=== PATIENT | male | born 1965 | race Caucasian/White ===

== ENCOUNTER 2024-06-25 14:20 | Emergency (ER) | payer MEDICAID, SELFPAY ==
[2024-06-25] VITALS (11 sets, daily range): BP systolic 137–180; BP diastolic 95–137; PULSE 86–103; RESP 14–24; TEMP 36.8–36.9; O2SAT 94–100; BMI 26.5
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
--- NOTE | 2024-06-25 15:03 | PD.EDRME ---
Rapid Medical Screening Exam RME Arrival date/time: 06/25/24 14:20 This is a 58-year-old male who presents to the emergency department with complaints of shortness of breath with deep inspiration. I have greeted and performed a focused initial assessment of this patient. Initial appropriate labs ordered at this time. A comprehensive ED assessment and evaluation of the patient and analysis of all test and completion of medical decision making process will be conducted by additional ED provider. Chief Complaint: Chest Pain Time Seen by Provider: 06/25/24 14:36 Vital signs: Vital Signs Temperature 98.4 F 06/25/24 14:53 Pulse Rate 86 06/25/24 14:53 Respiratory Rate 24 H 06/25/24 14:53 Blood Pressure 137/95 H 06/25/24 14:53 Pulse Oximetry (%) 99 06/25/24 14:53 Oxygen Delivery Method Room Air 06/25/24 14:53
[2024-06-25 15:34] LABS: Basophils % (Auto) 0 % (0-2.5); Eosinophils # (Auto) 0.1 Thou/mm3 (0.0-0.5); Eosinophils % (Auto) 1 % (0-10); Hematocrit 41.7 % (41.0-53.0); Hemoglobin 14.4 g/dL (13.5-16.0); Immature Granulocytes % (Auto) 0 % (0-0); Immature Granulocytes Auto 0.02 Thou/mm3 (0.00-0.00); Lymphocytes # (Auto) 1.7 Thou/mm3 (1.0-4.8); Lymphocytes % (Auto) 19 % (10-50); Mean Corpuscular HGB Conc 34.5 g/dl (31.0-37.0); Mean Corpuscular Hemoglobin 31.6 pg (25.0-35.0); Mean Corpuscular Volume 92 fL (80-100); Monocytes # (Auto) 0.9 Thou/mm3 (0.0-0.8); Monocytes % (Auto) 10 % (0-12); Neutrophils % (Auto) 69 % (37-80); Nucleated Red Blood Cell % 0 /100 WBC (0); Platelet Count 156 Thou/mm3 (140-440); RDW Standard Deviation 45.5 fL (35.1-43.9); Red Blood Count 4.55 Miln/mm3 (4.50-5.90); White Blood Count 8.6 Thou/mm3 (3.8-10.6)
[2024-06-25 16:08] LABS: Alanine Aminotransferase 26 U/L (10-49); Albumin, Serum 4.3 gm/dL (3.5-5.0); Albumin/Globulin Ratio 1.4 (1.2-2.2); Alkaline Phosphatase 87 U/L (46-116); Anion Gap 10 (7-16); Aspartate Amino Transferase 24 U/L (0-34); BUN/Creatinine Ratio 12 Ratio (12-20); Bilirubin,Total 0.9 mg/dL (0.3-1.2); Blood Urea Nitrogen 14 mg/dL (9-23); Calcium 9.5 mg/dL (8.3-10.6); Calcium (Corrected) 9.5 mg/dL (8.5-10.1); Carbon Dioxide 28.3 mMol/L (20.0-31.0); Chloride 101 mMol/L (98-107); Creatinine (Component) 1.2 mg/dL (0.6-1.3); Estimated Creatinine Clearance 68.4 mL/min (>60); Glucose 164 mg/dL (74-106); Lipase 44 U/L (12-53); Magnesium 1.4 mg/dL (1.6-2.6); Osmolality,Calculated 282 (275-295); Potassium 3.8 mMol/L (3.4-5.1); Sodium 139 mMol/L (136-145); Total Protein 7.3 gm/dL (5.7-8.2); eGFR > 60 See Note
[2024-06-25 16:14] LABS: Troponin I 0.224 ng/mL (0.0-0.045)
[2024-06-25 16:35] LABS: Collection Type, Urine Clean Catch; Squamous Epithelial Cell,Urine 0 /hpf (0-5)
[2024-06-25 16:41] LABS: Bilirubin,Urine Negative (Negative); Blood,Urine Negative (Negative); Clarity,Urine Clear (Clear/Hazy); Color,Urine Light-Blue (Lt Yel-Yel); Glucose, Urine Negative (Negative); Ketones,Urine Negative (Negative); Leukocyte Esterase,Urine Negative (Negative); Nitrite,Urine Negative (Negative); Protein,Urine 2+ (Neg - Trace); RBC,Urine 2 /hpf (0-3); Specific Gravity,Urine 1.019 (1.001-1.035); WBC,Urine 1 /hpf (0-5)
[2024-06-25 16:49] LABS: Amphetamine/Methamp Scrn,U Positive (Negative); Barbiturate Screen,Urine Negative (Negative); Benzodiazepines Screen,Urine Negative (Negative); Benzoylecgonine Screen, Ur Negative (Negative); Fentanyl Screen,Urine Negative (Negative); Opiate Screen,Urine Negative (Negative); THC Screen,Urine Positive (Negative)
[2024-06-25] MEDS: Furosemide 40 MG TABLET PO (17:28)
[2024-06-25] MEDS: FUROSEMIDE INJ 10 MG/ML 4ML VIAL 80 MG IVP (17:57)
[2024-06-25] MEDS: Magnesium Sulfate 2 GM Ivpb 2 GM/50 ML BAG IV (18:01)
--- NOTE | 2024-06-25 18:13 | EDNOTE_ITS ---
<Statement entered by Eve Conner MD - 06/25/24 21:20> As co-signing physician, I was present and available for consult prn. I concur with the plan and care as documented by the midlevel provider. ED Chest Pain RME/HPI General Chief Complaint: Chest Pain Stated Complaint: CP, CHEST TIGHTNESS, SOB, POST STENT PLACEMENT Time Seen by Provider: 06/25/24 14:36 Arrival date/time: 06/25/24 14:20 RME / HPI RME / HPI narrative: 58-year-old male who presents to the emergency department with complaints of shortness of breath with deep inspiration. This been going for the last several days, associated with chest discomfort. Patient denies any swelling to the legs. Denies any cough denies any fever denies any other complaints. Patient had a stent placed 10 months ago. He is not very compliant with his medication according to him. Denies any abuse of meth. Related Data Previous Rx's ?Medication ?Instructions ?Recorded aspirin 81 mg tablet,delayed 81 mg PO QDAY #30 tabs release atorvastatin 40 mg tablet 40 mg PO QPM #30 tabs hydrocodone 5 mg-acetaminophen 325 1 tab PO Q6H PRN pa in #14 tabs 03/04/20 mg tablet (Fieldon) sulfamethoxazole 800 1 tab PO BID #10 tabs mg-trimethoprim 160 mg tablet (Bactrim DS) Allergies Allergy/AdvReac Type Severity Reaction Status Date / Time No Known Allergies Allergy Verified 09/10/20 10:06 Review of Systems Review of Systems Narrative Review of Systems: Review of system reviewed and within normal limits except mentioned in HPI ED Exam Narrative Physical exam: VITAL SIGNS: Reviewed. GENERAL APPEARANCE: Alert and interactive, follows commands, no acute distress, HEAD AND FACE: Non-traumatic. ENT: PERRL, pink conjunctivitis, eyelid no trauma, Mucous membrane moist. NECK: Supple, nontender, no nuchal rigidity. CHEST: No tenderness, no crepitus, no paradoxical movement, no retractions. LUNGS: Clear, well ventilated, symmetric, no rales, no wheezing, no ronchi, no stridor, good breath sounds bilaterally. HEART: Regular rate, regular rhythm, no murmur, no gallops. ABDOMEN: Soft, positive bowel sounds, nondistended, no guarding, nontender, no rebound, no masses, RECTAL: Deferred. GENITAL: Deferred. NEUROLOGICAL: Gross motor function intact sensory function intact, Appropriate for age. MUSCULOSKELETAL: low back nontender, full range of motion. EXTREMITIES: Nontender, full range of motion. SKIN: Color pink, dry, no rash, no lacerations, no abrasions, no contusions. LYMPHATICS: Deferred. Course Quality Measures none Orders Category Date Time Status EKG (ED ONLY) *Do not use* NOW Care 06/25/24 15:00 Completed Insert IV NOW Care 06/25/24 17:29 Active NPO STAT Care 06/25/24 15:00 Active EKG (ED Only) Stat Exams 06/25/24 15:00 Ordered XR chest 2V Stat Exams 06/25/24 15:00 Completed CBC Stat Lab 06/25/24 15:28 Completed Comprehensive Metabolic Panel Stat Lab 06/25/24 15:28 Completed Drug Screen,Urine Stat Lab 06/25/24 16:05 Completed Lipase Stat Lab 06/25/24 15:28 Completed Magnesium Stat Lab 06/25/24 15:28 Completed Troponin I Stat Lab 06/25/24 15:28 Completed Troponin I Stat Lab 06/25/24 17:28 Completed Urinalysis Stat Lab 06/25/24 16:05 Completed Furosemide Inj [Lasix Inj] Med 06/25/24 17:32 Discontinued 40 mg IVP X1 ONE Furosemide Inj [Lasix Inj] Med 06/25/24 17:44 Discontinued 80 mg IVP X1 ONE Furosemide [Lasix] Med 06/25/24 17:17 Discontinued 40 mg PO X1 ONE Magnesium Sulfate 2 GM Ivpb [Magnesium Sulfate Ivpb] Med 06/25/24 17:44 Discontinued 2 gm in 50 ml IV X1 Vital Signs Vital signs: Vital Signs Temperature 98.4 F 06/25/24 14:53 Pulse Rate 86 06/25/24 14:53 Respiratory Rate 24 H 06/25/24 14:53 Blood Pressure 137/95 H 06/25/24 14:53 Pulse Oximetry (%) 99 06/25/24 14:53 Oxygen Delivery Method Room Air 06/25/24 14:53 Chest Pain MDM Narrative MDM Narrative:: 58-year-old male who presents to the emergency department with complaints of s hortness of breath with deep inspiration. This been going for the last several days, associated with chest discomfort. Patient denies any swelling to the legs. Denies any cough denies any fever denies any other complaints. Patient had a stent placed 10 months ago. He is not very compliant with his medication according to him. Denies any abuse of meth. Patient's workup is significant for slightly elevated troponin, elevated troponin, after 3 hours, still remained the same 0.228. Chest x-ray showed mild congestive heart failure otherwise unremarkable. Patient tested positive for meth and marijuana. Patient received IV Lasix, in the emergency room with significant improvement of symptoms. Patient was advised to stop abusing meth and follow-up closely with billing associate. Patient agrees with the plan. Patient appears nontoxic and hemodynamically stable. Patient discharged home and instructed to follow-up with primary care provider in 24 to 48 hours. Instructed to return to the emergency department immediately if worsening of symptoms Patient data External records reviewed:: None Clinical information provided by:: none Social determinants that could affect healthcare access:: none Patient has the following chronic illnesses:: CAD, hypertension congestive heart failure How is presenting disease/condition affected by chronic disease/condition?: exacerbated by Evaluation data The following diagnostics were reviewed and interpreted by me:: lab results, radiology exam(s) and EKG tracing(s) Lab and/or radiology exams considered but not ordered:: None Interpretation Summary: EKG showed sinus rhythm, no ST segment elevation depression noted. X-ray of the chest showed mild congestive heart failure Medications / Prescriptions Medications or Prescriptions considered but not ordered:: None Medication administrations:: Medication Administration History Discontinued Medications Furosemide (Furosemide 40 Mg Tablet) 40 mg PO X1 ONE Stop: 06/25/24 17:18 Last Admin: 06/25/24 17:28 Dose: 40 mg Documented By: CHAITANYA Furosemide (Furosemide Inj 10 Mg/Ml 4ml Vial) 40 mg IVP X1 ONE Stop: 06/25/24 17:33 Last Admin: 06/25/24 17:50 Dose: Not Given Documented By: CHAITANYA Non-Admin Reason: Cancelled by Provider Furosemide (Furosemide Inj 10 Mg/Ml 4ml Vial) 80 mg IVP X1 ONE Stop: 06/25/24 17:45 Last Admin: 06/25/24 17:57 Dose: 80 mg Documented By: CHAITANYA Magnesium Sulfate (Magnesium Sulfate Ivpb) 2 gm in 50 mls @ 25 mls/hr IV X1 ONE Stop: 06/25/24 19:43 Last Infusion: 06/25/24 20:07 Dose: Infused Documented By: Admin: 06/25/24 18:01 Dose: 25 mls/hr Documented By: CHAITANYA Lasix magnesium sulfate Consultations Consultation(s) initiated? (list below): No Diagnosis Chest Pain Differential Diagnosis: chest pain and other (Methamphetamine abuse, congestive heart failure) Most likely diagnosis given after review of the tests above:: Methamphetamine abuse, congestive heart failure Admission Indicated Admission indicated?: not indicated Admission Request Was there a request for admission?: No Disposition Plan Disposition Plan: Discharge Discharge Attestation Discharge Attestation: The patient was given an opportunity to ask questions and understood the discharge instructions. Discharge instructions specifically effects, indications for sooner follow up or return to the emergency department, and the expected course of current diagnosis. Patient condition: Stable Discharge Plan Plan Patient Disposition: HOME (Self Care) Disposition Comment: Stable Prescriptions/Referrals Prescriptions/Med Rec: No Action aspirin 81 mg tablet,delayed release (DR/EC) 81 mg PO QDAY Qty: 30 0RF atorvastatin 40 mg tablet 40 mg PO QPM Qty: 30 0RF sulfamethoxazole-trimethoprim [Bactrim DS] 800-160 mg tablet 1 tab PO BID Qty: 10 0RF hydrocodone-acetaminophen [Fieldon] 5-325 mg tablet 1 tab PO Q6H MDD 3 PRN (Reason: pain) Qty: 14 0RF Referrals: No Primary/Family,Physician [Primary Care Provider] - In 1 week Problem List Clinical Impression: Congestive heart failure, Methamphetamine abuse Patient/Caregiver Discharge Instructions Discharge Activity: activity as tolerated Education Materials: Heart Failure Meds, ED Drug Abuse Additional Instructions: Thank you for the opportunity for serving you today. You are stable for discharged . You are advised to: Follow-up with your PCP in 1 to 2 days Return to ED for worsening of symptoms Take your medications prescribed by your PCP on a regular basis. Print Language: Citizen Of [place] Stand Alone Forms: Dea Award Info., Patient Portal Info Letter KEV/AMITA Supervising Physician KEV/AMITA Supervising Physician: MD Jennifer
[2024-06-25 18:19] LABS: Troponin I 0.228 ng/mL (0.0-0.045)
== END 2024-06-25 20:58 | disposition home or self-care (01) ==
PROVIDERS: Nurse Practitioner Family; Nurse Practitioner Primary Care; Emergency Provider Emergency Medicine
DX: I50.9 Heart failure, unspecified (principal); F15.10 Other stimulant abuse, uncomplicated
CPT/HCPCS: 36415; 71046; 80053; 80307; 81001; 83690; 83735; 84484; 85025; 93005; 96365; 96366; 96375; 99284; J1940; J3475; A9270